=== PATIENT | male | born 1995 | race Caucasian/White ===

== ENCOUNTER 2017-08-02 13:01 | Emergency (ER) | payer MEDICAID ==
--- NOTE | 2017-08-02 16:09 | EDM.PDOC ---
ED HPI GENERAL MEDICAL PROBLEM - General Chief Complaint: General Stated Complaint: FACE INJURY Time Seen by Provider: 08/02/17 14:53 Source of Information: Reports: Patient History Limitations: Reports: No Limitations - History of Present Illness INITIAL COMMENTS - FREE TEXT/NARRATIVE: This young man was [place] in a ice [place] overnight and another one of his friends also was asleep the friend was unresponsive when they awakened this morning the friend was brought in and declared after a short trial of CPR. The man had an elevated carboxyhemoglobin of approximately 57. The patient was asked to come in and have his carboxyhemoglobin checked since he may have also been exposed. Patient does not have any symptoms now nose Pain Score (Numeric/FACES): 5 - Related Data Allergies Allergy/AdvReac Type Severity Reaction Status Date / Time No Known Allergies Allergy Verified 08/02/17 13:39 Home Meds: Home Meds NK [No Known Home Meds] 08/02/17 [History] Past Medical History Neurological History: Reports: Concussion - Infectious Disease History Infectious Disease History: Reports: Chicken Pox - Past Surgical History HEENT Surgical History: Reports: Eye Surgery GI Surgical History: Reports: Appendectomy Musculoskeletal Surgical History: Reports: Other (See Below) Other Musculoskeletal Surgeries/Procedures:: right lower leg surgery Social & Family History - Tobacco Use Smoking Status *Q: Never Smoker - Caffeine Use Caffeine Use: Reports: Coffee - Recreational Drug Use Recreational Drug Use: No ED ROS GENERAL - Review of Systems Review Of Systems: ROS reveals no pertinent complaints other than HPI. ED EXAM, GENERAL - Physical Exam Exam: See Below Exam Limited By: No Limitations General Appearance: Alert, WD/WN, No Apparent Distress Neurological: Alert, Oriented, CN II-XII Intact, Normal Cognition, Normal Gait Psychiatric: Normal Affect, Normal Mood Skin Exam: Normal Color Course - Vital Signs Last Recorded V/S: Last Vital Signs Temp 36.6 C 08/02/17 13:42 Pulse 92 08/02/17 13:42 Resp 20 08/02/17 13:42 BP 155/87 H 08/02/17 13:42 Pulse Ox 97 08/02/17 13:42 - Orders/Labs/Meds Labs: Laboratory Tests 08/02/17 Range/Units 14:54 ABG Carboxyhemoglobin 4.6 H (0.0-1.6) % Departure - Departure Time of Disposition: 16:07 Disposition: Home, Self-Care 01 Condition: Fair Clinical Impression: Nasal fracture, Carbon monoxide exposure - Discharge Information Instructions: Carbon Monoxide Poisoning, [id number], Nasal Fracture, Easy-to- Read Referrals: PCP,None [Primary Care Provider] - Forms: ED Department Discharge Additional Instructions: There appears to be a fracture of the nasal bone this should heal without any problems. If the nose seems crooked after the swelling goes down in a few days you can see an lumber chain offbearer to have it straightened. Your eye appears to be an injured. It might help to put some ice on her nose. Your carbon monoxide or carboxyhemoglobin level was 4.6 which is barely above normal and is less than what is seen in an average smoker.
== END 2017-08-02 16:18 | disposition home or self-care (01) ==
LOC: JP.ED 13:01
DX: S02.2XXA Fracture of nasal bones, initial encounter for closed fracture (principal); Z77.29 Contact with and (suspected) exposure to other hazardous substances; X58.XXXA Exposure to other specified factors, initial encounter
CPT/HCPCS: 82375; 99284